=== PATIENT | female | born 1970 | race African-American/Black ===

== ENCOUNTER 2017-09-04 14:45 | Emergency (ER) | payer OTHER, BC ==
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
[2017-09-04 18:11] VITALS: BP 118/79
== END 2017-09-04 18:11 | disposition home or self-care (01) ==
LOC: ER 14:45
DX: F07.81 Postconcussional syndrome (principal); V43.52XA Car driver injured in collision with other type car in traffic accident, initial encounter; Z88.0 Allergy status to penicillin
CPT/HCPCS: 99283

== ENCOUNTER 2017-09-06 13:53 | Emergency (ER) | payer OTHER, BC ==
[2017-09-06 13:58] VITALS: BP 120/71
[2017-09-06] MEDS ORDERED: FAMOTIDINE 20 MG TABLET PO ONE (14:20)
[2017-09-06] MEDS ORDERED: PREDNISONE 20 MG TABLET PO ONE (14:20)
--- NOTE | 2017-09-06 14:25 | ER Document Report ---
HPI - HPI Patient complains to provider of: Skin rash Onset: Yesterday Onset/Duration: Persistent Quality of pain: Burning Pain Level: 4 Context: Patient complains of burning skin rash that started yesterday and gradually worsened today. Patient denies any new foods, medications or detergents. Patient denies any difficulty breathing. Associated Symptoms: Other - Skin rash. denies: Fever Exacerbated by: Denies Relieved by: Denies Similar symptoms previously: No Recently seen / treated by doctor: Yes - ROS ROS below otherwise negative: Yes Systems Reviewed and Negative: Yes All other systems reviewed and negative - EENT EENT: DENIES: Sore Throat, Congestion - NEURO Neurology: DENIES: Headache - RESPIRATORY Respiratory: DENIES: Trouble Breathing, Coughing - GASTROINTESTINAL Gastrointestinal: DENIES: Nausea, Patient vomiting - REPRODUCTIVE Reproductive: DENIES: : - DERM Skin Color: Erythema Skin Problems: Rash Past Medical History - General Information source: Patient - Social History Smoking Status: Never Smoker Frequency of alcohol use: None Drug Abuse: None 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 IN LAST 30 DAYS: No - HEENT HEENT: Atraumatic, Normal ENT Exam, Normocephalic Notes: no angioedema - NECK Neck: Normal Inspection, Supple. negative: Lymphadenopathy-Left, Lymphadenopathy-Right - RESPIRATORY Respiratory: Breath Sounds Normal, No Respiratory Distress O2 Sat by Pulse Oximetry: 100 - CARDIOVASCULAR Cardiovascular: Regular Rate, Regular Rhythm, No Murmur - BACK Back: Normal Inspection - MUSCULOSKELETAL/EXTREMETIES Musculoskeletal/Extremeties: SAMANTA ROBERSON - NEURO Level of Consciousness: Awake, Alert, Appropriate Motor/Sensory: No Motor Deficit - DERM Integumentary: Warm, Dry, Rash - urticarial rash to trunk and extremities Course - Vital Signs Vital signs: Temp Pulse Resp BP Pulse Ox 98.6 F 79 18 120/71 100 09/06/17 13:57 09/06/17 13:57 09/06/17 13:57 09/06/17 13:57 09/06/17 13:57 Discharge - Discharge Clinical Impression: Urticaria Condition: Stable Disposition: HOME, SELF-CARE Instructions: Acute Urticaria ([facility]), Use of Diphenhydramine, Steroid Medication Additional Instructions: Return immediately for any new or worsening symptoms Followup with your primary care provider, call tomorrow to make a followup appointment Take Benadryl [id number] as directed to help with her symptoms Prescriptions: Famotidine [Pepcid 20 mg Tablet] 20 mg PO BID #12 tablet Prednisone [Deltasone 20 mg Tablet] 3 tab PO DAILY 4 Days tablet Referrals: [facility] [Provider Group] - Follow up as needed
== END 2017-09-06 14:41 | disposition home or self-care (01) ==
LOC: ER 13:53
DX: L50.9 Urticaria, unspecified (principal)
CPT/HCPCS: 99282; J7512

== ENCOUNTER 2019-09-28 05:28 | Day surgery (SDC) | payer OTHER, BC ==
[2019-09-25 11:54] LABS: APPEARANCE,URINE CLEAR; BILIRUBIN,URINE NEGATIVE (NEGATIVE); COLOR,URINE YELLOW; GLUCOSE, URINE NEGATIVE (NEGATIVE); KETONES,URINE NEGATIVE (NEGATIVE); LEUKOCYTE ESTERASE,URINE NEGATIVE (NEGATIVE); NITRITE,URINE NEGATIVE (NEGATIVE); PROTEIN,URINE NEGATIVE (NEGATIVE); URINE SPECIFIC GRAVITY 1.014; UROBILINOGEN,URINE NEGATIVE mg/dL (<2.0)
[2019-09-25 11:56] LABS: HEMATOCRIT 36.5 % (36.0-47.0); HEMOGLOBIN 12.2 g/dL (12.0-15.5); MEAN CORPUSCULAR HEMOGLOBIN 28.7 pg (27.0-33.4); MEAN CORPUSCULAR HGB CONC 33.3 g/dL (32.0-36.0); MEAN CORPUSCULAR VOLUME 86 fl (80-97); PLATELET COUNT 246 10^3/uL (150-450); RED BLOOD COUNT 4.24 10^6/uL (3.72-5.28); RED CELL DISTRIBUTION WIDTH 17.3 % (11.5-14.0); WHITE BLOOD COUNT 6.2 10^3/uL (4.0-10.5)
[2019-09-25 12:18] LABS: ALBUMIN 4.4 g/dL (3.5-5.0); ALKALINE PHOSPHATASE 54 U/L (38-126); ANION GAP 11 (5-19); ASPARTATE AMINO TRANSFERASE 29 U/L (14-36); BILIRUBIN,DIRECT 0.2 mg/dL (0.0-0.4); BILIRUBIN,TOTAL 0.6 mg/dL (0.2-1.3); BLOOD UREA NITROGEN 8 mg/dL (7-20); CALCIUM 9.7 mg/dL (8.4-10.2); CARBON DIOXIDE 22 mmol/L (22-30); CHLORIDE 106 mmol/L (98-107); GLUCOSE 73 mg/dL (75-110); POTASSIUM 4.7 mmol/L (3.6-5.0); TOTAL PROTEIN 7.7 g/dL (6.3-8.2)
--- NOTE | 2019-09-25 12:43 | RADIOLOGY REPORT (SQ) ---
EXAM DESCRIPTION: CHEST PA/LATERAL COMPLETED DATE/TIME: 09/25/2019 11:56 am REASON FOR STUDY: PRE-OP COMPARISON: None. EXAM PARAMETERS: NUMBER OF VIEWS: two views TECHNIQUE: Digital Frontal and Lateral radiographic views of the chest acquired. RADIATION DOSE: NA LIMITATIONS: none FINDINGS: LUNGS AND PLEURA: No opacities, masses or pneumothorax. No pleural effusion. MEDIASTINUM AND HILAR STRUCTURES: No masses or contour abnormalities. HEART AND VASCULAR STRUCTURES: Heart normal size. No evidence for failure. BONES: No acute findings. Serpiginous thoracolumbar curvature. HARDWARE: None in the chest. OTHER: No other significant finding. IMPRESSION: NO SIGNIFICANT RADIOGRAPHIC FINDING IN THE CHEST. TECHNICAL DOCUMENTATION: JOB ID: [id number] [employer]- All Rights Reserved Reading location - IP/workstation name: [email or web address]
--- NOTE | 2019-09-25 19:42 | EKG REPORT ---
SEVERITY:- NORMAL ECG - SINUS RHYTHM : Confirmed by: Evans Orellana MD 25-Sep-2019 19:42:39
[~2019-09-28 05:28] MED LIST: CEFAZOLIN 1 GM/D5W RTU 1 GM/50 ML RTUPB IV ONE; CEFAZOLIN 1 GM/D5W RTU 1 GM/50 ML RTUPB IV PRN; CEFAZOLIN SODIUM 1 GM in DEXTROSE 5%-WATER 50 ML IV SCH; DEXAMETHASONE SOD PHOSPHATE INJ 4 MG/1 ML VIAL ONE; KETOROLAC TROMETHAMINE 60 MG/2 ML SDV ONE; LACTATED RINGERS 1000 ML IV PRN; LIDOCAINE 0.5% INJ-PF (5 MG/ML) 50 ML SDV SUBCUT PRN; LIDOCAINE 2% INJ-PF (20 MG/ML) 2 ML AMPUL ONE; ONDANSETRON HCL INJ/PF 4 MG/2 ML SDV ONE; ROCURONIUM BROMIDE INJ 50 MG/5 ML VIAL IV ONE; SUCCINYLCHOLINE CHLORIDE INJ 200 MG/10 ML VIAL ONE
[2019-09-28] MEDS ORDERED: FENTANYL CITRATE INJ/PF 250 MCG/5 ML AMPULE ONE (07:10)
[2019-09-28] MEDS ORDERED: EPHEDRINE SULFATE INJ 50 MG/1 ML AMPULE ONE (07:10)
[2019-09-28] MEDS ORDERED: PROPOFOL INJ 200 MG/20 ML VIAL IV ONE (07:10)
[2019-09-28] MEDS ORDERED: MIDAZOLAM 2 MG/2 ML INJ ONE (07:11)
[2019-09-28] MEDS ORDERED: BUPIVACAINE HCL 0.25 % INJ/PF (2.5 MG/1 ML) 30 ML VIAL ONE (07:42)
[2019-09-28] MEDS ORDERED: FENTANYL CITRATE INJ/PF 100 MCG/2 ML AMPUL IV PRN ×3 (07:51)
[2019-09-28] MEDS ORDERED: PROMETHAZINE HCL INJ 25 MG/1 ML VIAL IV PRN ×3 (07:51→14:21)
[2019-09-28] MEDS ORDERED: DIPHENHYDRAMINE HCL 50 MG/ML VIAL IV PRN (07:51)
[2019-09-28] MEDS ORDERED: MEPERIDINE HCL/PF INJ 25 MG/1 ML DISP.SYRIN IV PRN (07:51)
[2019-09-28] MEDS ORDERED: MEPERIDINE HCL/PF INJ 25 MG/1 ML DISP.SYRIN ONE (09:39)
[2019-09-28] MEDS ORDERED: FENTANYL CITRATE INJ/PF 100 MCG/2 ML AMPUL ONE (09:45)
[2019-09-28] MEDS ORDERED: HYDROMORPHONE HCL 2 MG TABLET PO PRN (10:06)
[2019-09-28] MEDS ORDERED: ONDANSETRON HCL 8 MG TABLET PO PRN (10:08)
[2019-09-28] MEDS ORDERED: ONDANSETRON 4 MG TAB.RAPDIS ONE (10:47)
[2019-09-28] MEDS: IBUPROFEN 800 MG TABLET PO SCH ×3 (14:00→23:12)
[2019-09-29 00:43] VITALS: BP 121/71
--- NOTE | 2019-10-07 13:41 | Operative Report ---
Operative Report DATE OF SURGERY: 09/28/19 PREOPERATIVE DIAGNOSIS: Menorrhagia with fibroids POSTOPERATIVE DIAGNOSIS: Same OPERATION: Robotic assisted total hysterectomy bilateral salpingectomy and a right oophorectomy SURGEON: GUY DELEON ANESTHESIA: GA TISSUE REMOVED OR ALTERED: Uterus bilateral tubes and right ovary COMPLICATIONS: None ESTIMATED BLOOD LOSS: Specimen 200 cc INTRAOPERATIVE FINDINGS: I enlarged uterus with multiple large fibroids PROCEDURE: Patient was placed in a dorsal lithotomy position prepped draped sterile fashion. Speculum placed cervix visualized and grasped single-tooth tenaculum uterus sounded to 12 cm the V care uterine manipulator was placed per protocol. Tension turned to the abdomen where a supraumbilical incision was made trocar was introduced introduction of the laparoscope. Uterus was large and boggy with multiple fibroids being noted. A second puncture was made lateral to the midline and a 5 trocar was introduced a third on the left and a 5 was introduced and a accessory port above the iliac crest on the right. Robot was docked and using monopolar and bipolar cautery the left tube was divided along the mesosalpinx and the broad ligament divided down to the ascending branch of the uterine artery. On the right the ovary was adhered to the posterior aspect of the uterus to the inferior pelvic was then divided and divided after cautery. This was continued down the broad ligament to the ascending branch of the uterine artery on the right. The bladder flap was created with sharp dissection. The uterus was then removed using cautery circumscribe the cervix. Point the uterus was too large to removed through the vaginal opening. Robot was undocked and attention was turned to the pelvis. A speculum was placed and the cervix visualized and grasped with a a 3 Elisabeth thyroid clamp after removing the V care. The uterus then morcellated in multiple sections until the uterus the tubes and the right ovary could be removed. Cuff was closed with running suture of 0 Vicryl. Attention was turned back to the abdomen which is insu fflated the pelvis irrigated with normal saline hemostasis was noted. The laparoscope was removed and then deflated trocar sleeves removed the supraumbilical an accessory port fascia was closed with 0 Vicryl and all skin incisions were closed using subcu 4-0 Vicryl. Dermabond was placed over the incisions. Patient is urinating throughout the procedure she was taken recovery room in good condition
== END 2019-09-29 01:14 | disposition home or self-care (01) ==
LOC: OROUT 05:28 → 2N 10:30 → OROUT 09-29 01:14
PROVIDERS: ATTEND Obstetrics & Gynecology Gynecology
DX: D25.1 Intramural leiomyoma of uterus (principal); D25.0 Submucous leiomyoma of uterus; D25.2 Subserosal leiomyoma of uterus; N83.01 Follicular cyst of right ovary; N83.11 Corpus luteum cyst of right ovary; N83.8 Other noninflammatory disorders of ovary, fallopian tube and broad ligament; N92.1 Excessive and frequent menstruation with irregular cycle; D64.89 Other specified anemias; Z32.02 Encounter for pregnancy test, result negative; R10.2 Pelvic and perineal pain; R00.2 Palpitations
CPT/HCPCS: 58573; S2900; 36415; 71046; 80053; 81001; 81025; 840; 85027; 86850; 86900; 86901; 88307; 93005; 93010; J0330; J0690; J1100; J1885; J2175; J2250; J2405; J2704; J3010; J3490; J7060; S0119